=== PATIENT | female | born 1950 | race Caucasian/White ===

== ENCOUNTER 2017-01-15 14:49 | Inpatient (IN) | payer BC ==
[~2017-01-15] VITALS: Ht 157.5 cm; Wt 65.3 kg
--- NOTE | ~2017-01-15 | O ---
[facility] [place] [address] OPERATIVE REPORT Name: LON OCONNOR Room #: 312-P [facility] IN M.R.#: [id number] Admission: 01/15/17 Attend Phys: Azalea Connor MD Discharge: Date of : 54 Report #: [id number] THIS REPORT FOR: //name// CC: Azalea Connor DATE OF SERVICE: 01/20/2017 PREOPERATIVE DIAGNOSES: 1. Acute sigmoid diverticulitis with microperforation, status post percutaneous drainage. 2. New undrained intra-abdominal abscess. POSTOPERATIVE DIAGNOSES: 1. Acute sigmoid diverticulitis with microperforation, status post percutaneous drainage. 2. Significant intra-abdominal and pelvic adhesions with an entrapped loop of small bowel in the posterior cul-de-sac. PROCEDURE PERFORMED: Laparoscopic lysis of adhesions. SURGEON: Juanita Huynh M.D. EYELET MACHINE OPERATOR: DANNA Lord. ANESTHESIA: General endotracheal anesthesia. ESTIMATED BLOOD LOSS: Minimal (less than 5 mL). COMPLICATIONS: None appreciated. SPECIMENS: None. INDICATIONS: The patient is a 66-year-old female who was admitted a few days ago with a 5-day history of acute sigmoid diverticulitis with a pelvic abscess. The patient underwent percutaneous drainage by interventional radiology and was improving slightly until repeat CT scan yesterday evening showed evidence of complete evacuation of her pelvic abscess; however, there was evidence of a large mid abdominal to upper pelvic abscess with numerous loops of small bowel contained around it that was undrained and not amenable to percutaneous drainage as it appeared to communicate with the sigmoid colon. After a thorough review of the CT scan images with Dr. Vasquez, this did appear to be an abscess and as such, indication was for proceeding to the operating room for laparoscopic drainage of this abscess. Intraoperative findings of no evidence whatsoever of an abscess were identified, however, there was one loop of distal small bowel intimately plastered to the sacral promontory in the posterior cul-de-sac that was spiraling and twisting thereby being a [facility] [address] [place] [address] OPERATIVE REPORT Name: LON OCONNOR Room #: 312-P [facility] IN [facility].#: [id number] Admission: 01/15/17 Attend Phys: Azalea Connor MD Discharge: Date of : 54 Report #: [id number] relative closed loop obstruction, likely representing the CT scan findings of what appeared to be an abscess in the pelvis. Indication therefore was for lysis of adhesions to release this loop of small bowel into the upper abdomen. DESCRIPTION OF PROCEDURE: After explaining the risks, benefits and alternatives of the procedure with the patient in detail in the preoperative holding area and obtaining written consent, the patient was brought to the operating room and placed supine on the operating room table. After conducting a thorough timeout procedure verifying correct patient and procedure, the patient was given general endotracheal anesthesia. Once adequate anesthesia was obtained, SCDs were hooked up to pneumatic compression device and she was already on an inpatient regimen of IV antibiotic therapy, which is all in line with the SCIP protocol. The patient's abdomen was prepped and draped in standard surgical sterile fashion. 5 mL of 0.5% Marcaine with epinephrine were used to anesthetize the skin in the right upper quadrant and midclavicular line in a subcostal location. A #15 bladed scalpel was used to create a small skin bianka at this location. A 5-mm Visiport was placed over 0 degree 5 mm laparoscope and was introduced through this incision site. Once intraabdominal placement was verified visually, the obturator for the trocar and laparoscope were both removed and the abdomen was insufflated to 15 mmHg using carbon dioxide gas. The laparoscope was changed to a 5-mm 30-degree laparoscope and was reintroduced through this trocar. The entire abdomen was evaluated to ensure no injury upon entry. I now proceeded to place two additional 5 mm trocars, one in the right flank and one in the subxiphoid location. Both were placed under direct vision after anesthetizing the skin at each location with 5 mL of 0.5% Marcaine with epinephrine and I had created small skin nicks using #15 bladed scalpel. The patient was now placed in Trendelenburg position with the left side gently elevated, and I proceeded to evaluate the intra-abdominal domain. There were marked adhesions of omentum plastered to the pelvis. These were taken down with blunt dissection with ease. The descending colon was identified, was healthy and uninflamed. However, at the sigmoid colon area, it was quite firm, indurated and there was omentum plastered to it likely sealing the perforated spot and as such, I did not manipulate this to unroof it. We saw no evidence of purulent fluid throughout the abdominal domain. Further inspection in the pelvis showed evidence of marked adhesions to the posterior cul-de-sac with a loop of distal ileum plastered posterior to the uterus and anterior to the sacral promontory. Careful dissection was undertaken to free this loop of bowel, which was spiraling downward and had a relative closed loop obstruction appearance to it. Once I had freed this bowel from its inflammatory adhesions, I was able to sweep it into the mid abdominal region for full investigation and we saw no evidence of serosal injury or enterotomy whatsoever. We investigated on several occasions to ensure no damage and we again saw no evidence of pathology. Investigation of the pelvis now showed healthy rectum with again no evidence of an abscess whatsoever. I now copiously irrigated the abdomen with 2 liters of normal saline, which ran clear. I then elected to place a surgical drain in the posterior cul-de-sac, which was a 19-[place] round [facility] [address] [place] [address] OPERATIVE REPORT Name: LON OCONNOR Room #: 312-P [facility] IN [facility]#: [id number] Admission: 01/15/17 Attend Phys: Azalea Connor MD Discharge: Date of : 54 Report #: [id number] drain. This was brought out through the right lateral flank trocar site. It was anchored to the skin using 2-0 nylon in standard fashion. This was again placed in the posterior cul-de-sac under direct vision. As we saw no further evidence of pathology, all ports removed under direct vision. The abdomen was fully desufflated. 4-0 Monocryl was used in a standard subcuticular fashion for all skin incisions and Dermabond glue was applied to all skin wounds. At the end of the procedure, all instrument, needle and sponge counts were correct. The patient tolerated the procedure without incident, was awakened in the operating room, transitioned to the recovery room in stable condition with no apparent complications. <ELECTRONICALLY SIGNED> By: Juanita Huynh MD, FACS 01/21/17 0908 1529 1609 Juanita Huynh MD, ALBER /nt
--- NOTE | ~2017-01-15 | HC ---
[facility] [place] [address] CONSULTATION Name: ANASTASIALON Luis Room #: 312-P [facility] IN M.R.#: [id number] Admission: 01/15/17 Attend Phys: Azalea Connor MD Discharge: Date of : 54 Report #: [id number] THIS REPORT FOR: //name// CC: Azalea Connor TYPE OF REPORT: Infectious diseases consultation. REASON FOR CONSULTATION: I was asked to evaluate concerning pelvic abscess. HISTORY OF PRESENT ILLNESS: The patient was a 66-year old who has had intermittent abdominal discomfort for last several months. Last week, she had persisting abdominal pain associated with fever. She did have some urinary complaints with pelvic discomfort with micturition. No dysuria per se. Initially, treated with nitrofurantoin but did not improve. Subsequently, was hospitalized where CT scan showed pelvic abscess and suspected diverticular perforation. Abscess was drained on the . Cultures are pending. She has been treated with Zosyn and metronidazole. Her fever has resolved. Still has some abdominal discomfort. She has been trying to eat but has had resulting nausea. Very small amount of stool production. Has been passing gas. Still has pelvic pain with micturition. She has passed no air in her urine. ALLERGIES: To SULFA and HYDROCODONE. MEDICATIONS: As noted on her MAR, now including Zosyn and metronidazole. PAST MEDICAL HISTORY: Cholangitis colitis, scoliosis, hypertension, depression and rosacea. FAMILY HISTORY: Noncontributory. SOCIAL HISTORY: Smokes cigarettes, minimal alcohol intake. REVIEW OF SYSTEMS: No cough or sputum. No rashes or arthritis. Now has a drain in the right buttock region, which causes some discomfort. PHYSICAL EXAMINATION: VITAL SIGNS: Afebrile and hemodynamically stable. GENERAL: She was alert and cooperative and pleasant and able to sit up in bed. HEENT: Unremarkable. Right upper extremity PICC was unremarkable. CHEST: Clear. HEART: Regular, without murmur. ABDOMEN: Mildly distended. She was tender in the epigastric region, mostly towards the right. Upon palpation, the patient began to be nauseated and began vomiting. There was significant fullness in the mid to right abdomen. LABORATORY STUDIES: Culture from the abscess cavity, no organisms seen, no PMN seen and no growth so far. Sodium 139, potassium 3.7, bicarbonate [address] [address] CONSULTATION Name: LON OCONNOR Luis Room #: [address] [place] [address] [place] [facility].#: [id number] Admission: 01/15/17 Attend Phys: Azalea Connor MD Discharge: Date of : 54 Report #: [id number] creatinine 0.9. Hemoglobin 11.9; white count was 10.3 and platelet count 445,000. Differential unremarkable. Blood culture is negative. Liver function test normal. IMPRESSION AND PLAN: A pelvic abscess, suspecting diverticulitis with perforation. Despite having a drain in place, she is still very distended and has significant tenderness. I will recommend continuing her IV antibiotic therapy. Agree with repeating her CAT scan to ensure adequate drainage. I am a bit concerned that the Gram stain showed no organisms and no WBCs with cultures being negative. This should be a polymicrobial infection. We will determine further treatment following repeat CAT scan. We will currently plan on arranging home IV therapy. <ELECTRONICALLY SIGNED> By: Roc Schafer MD 01/21/17 1025 1819 0042 Roc Schafer MD /nt
--- NOTE | ~2017-01-15 | HC ---
[facility] [place] [address] CONSULTATION Name: LON OCONNOR Luis Room #: 312-P [facility] IN .R.#: [id number] Admission: 01/15/17 Attend Phys: Azalea Connor MD Discharge: Date of : 54 Report #: [id number] THIS REPORT FOR: //name// CC: Azalea Connor DATE OF SERVICE: 01/15/2017 DATE OF SERVICE: 01/15/2017. REFERRING PROVIDER: Azalea Connor M.D. REASON FOR CONSULTATION: Abdominal pain. HISTORY OF PRESENT ILLNESS: The patient is a 66-year-old female who presented 4 days ago with complaints of suprapubic pain and dysuria. The patient was evaluated with a urinalysis which was suspicious for urinary tract infection and she was started on nitrofurantoin at that time. The patient states over the next couple of days, her fever resolved, but her pain worsened and her urine culture returned with no growth, so she was brought back to the office with worsened abdominal pain on exam. The working diagnosis was changed diverticulitis and she received a CT scan this morning after declining hospitalization on last evening. A CT scan today showed sigmoid diverticulitis with two pelvic abscesses, but no free air, consistent with severe diverticulitis and microperforation with abscess formation. The patient was therefore directly admitted and I have been asked to evaluate. PAST MEDICAL HISTORY: Hypertension, depression, rosacea, scoliosis and prior episodes of colitis. HOME MEDICATIONS: Mirabegron and Lexapro. ALLERGIES: HYDROCODONE AND SULFA. FAMILY HISTORY: Reviewed and noncontributory. SOCIAL HISTORY: The patient smokes half a pack of cigarettes daily and has done so for several years. She also drinks one glass of wine weekly and smokes marijuana daily. REVIEW OF SYSTEMS: GENERAL: The patient denies nocturnal fevers or chills. HEENT: No change in vision, change in hearing. NECK: No swelling or difficulty swallowing. HEART: No chest pain or palpitations. LUNGS: No cough or shortness of breath. ABDOMEN: Abdominal pain with nausea. [facility] [address] [place] [address] CONSULTATION Name: LON OCONNOR Luis Room #: 312-P [facility] IN M.R.#: [id number] Admission: 01/15/17 Attend Phys: Azalea Connor MD Discharge: Date of : 54 Report #: [id number] GENITOURINARY: No dysuria or hematuria. ENDOCRINE: No polyuria, polydipsia. HEMATOLOGIC: No history of bleeding or easy bruising. EXTREMITIES: No history weakness or limited range of motion. NEUROLOGIC: No history of syncope or near syncopal episodes. SKIN AND INTEGUMENT: No history of abnormal lesions or moles. PSYCHIATRIC: Positive history of anxiety, but no depression. PHYSICAL EXAMINATION: VITAL SIGNS: Temperature 99.0, pulse 61, respirations 16, blood pressure 102/62. She stands 5 feet 2 inches tall and weighs 144 pounds. GENERAL: Alert and oriented, in no acute distress. HEENT: Normocephalic, atraumatic. Pupils equal, round, reactive to light. NECK: Supple, without lymphadenopathy. Trachea midline. HEART: Regular rate and rhythm. LUNGS: Clear to auscultation bilaterally. ABDOMEN: Soft, nondistended. She is tender to palpation in the left lower quadrant and suprapubic regions, but does not have any guarding, rebound or peritoneal signs or symptoms. GENITOURINARY: Normal external female genitalia. EXTREMITIES: No clubbing, cyanosis or edema. NEUROLOGIC: Cranial nerves 2-12 are grossly intact. PSYCHIATRIC: Normal mood and affect. SKIN: No abnormal lesions or moles. LABORATORY AND X-RAY DATA: CBC shows white blood cell count of 14.4 thousand, hemoglobin 14.3, platelets 418,000. Creatinine 1.0. Liver function enzymes are normal. Albumin is 3.2. INR 1.0 with PTT of 29.4. CT scan report was reviewed with Dr. Connor showing findings as per history of present illness. ASSESSMENT AND PLAN: A 66-year-old female with what appears to be acute sigmoid diverticulitis with microperforation and multiple pelvic abscess formation. Per her outside report, these appear amenable to percutaneous drainage and as such, I will have Interventional Radiology intervene for drain placement at this time. We will initiate antibiotics in the form of Zosyn and Flagyl and keep her n.p.o. with IV fluid rehydration. The patient will likely improve markedly over the next few days with appropriate drainage and antibiotic therapy and hopefully we can avoid an emergent operation, which would entail Elaine's procedure with end colostomy. All the above was discussed with the patient in detail and she agrees to proceed as outlined. [address] [address] CONSULTATION Name: LON OCONNOR Room #: 312-P [facility] IN M.R.#: [id number] Admission: 01/15/17 Attend Phys: Azalea Connor MD Discharge: Date of : 54 Report #: [id number] I sincerely appreciate this consult. I will follow closely and leave any further recommendations in the patient's chart as appropriate. <ELECTRONICALLY SIGNED> By: Juanita Huynh MD, FACS 01/17/17 1120 1237 1433 Juanita Huynh MD, FACS /nt
[2017-01-15 15:00] VITALS: BP 115/69
[2017-01-15 17:34] LABS: HEMATOCRIT 40.4 % (37.0-47.0); HEMOGLOBIN 14.3 gm/dL (12.0-15.0); MCHC 35.5 g/dL (28.0-37.0); MCV 98.6 fL (80.0-100.0); PLATELET COUNT 418 thou/uL (150-400); RBC 4.09 mil/uL (4.20-5.00); RDW 12.3 % (10.5-14.5); WBC 14.4 thou/uL (4.0-11.0)
[2017-01-15 17:35] LABS: MANUAL DIFF YES
[2017-01-15 17:50] LABS: APTT 29.4 Seconds (24.5-32.8); PROTIME 9.4 Seconds (9.3-11.4)
[2017-01-15 17:52] LABS: ALBUMIN 3.2 g/dL (3.4-5.0); CALCIUM 9.6 mg/dL (8.5-10.1); TOTAL BILIRUBIN 0.5 mg/dL (<0.1-1.0); TOTAL PROTEIN 7.6 g/dL (6.4-8.2)
[2017-01-15 17:54] LABS: POTASSIUM 2.7 mmol/L (3.5-5.1)
[2017-01-15 17:56] LABS: ABSOLUTE NEUTROPHILS 12.8 thou/uL (1.4-8.2); ANISOCYTOSIS 1+; ATYPICAL LYMPHS 1 %; TOTAL CELL COUNT 100
[2017-01-15] MEDS ORDERED: MYRBETRIQ25 MG PO (17:59)
[2017-01-15] MEDS ORDERED: LEXAPRO 10 MG T10 MG PO (18:01)
[2017-01-15 20:00] VITALS: BP 102/62
[2017-01-15 23:30] VITALS: BP 99/60
[2017-01-16] VITALS (9 sets, daily range): BP systolic 94–115; BP diastolic 53–68
[2017-01-16 07:45] LABS: ABSOLUTE NEUTROPHILS 9.4 thou/uL (1.4-8.2); BASOPHILS 0.6 % (0.0-2.0); HEMATOCRIT 36.7 % (37.0-47.0); HEMOGLOBIN 12.7 gm/dL (12.0-15.0); LYMPHOCYTES 8.4 % (24.0-44.0); MCH 34.3 pg (26.0-34.0); MCHC 34.6 g/dL (28.0-37.0); MCV 99.1 fL (80.0-100.0); MONOCYTES 9.3 % (1.0-8.0); PLATELET COUNT 387 thou/uL (150-400); POLYS 80.7 % (36.0-66.0); RDW 12.7 % (10.5-14.5); WBC 11.7 thou/uL (4.0-11.0)
[2017-01-16 07:46] LABS: MANUAL DIFF NO
[2017-01-16 07:51] LABS: POTASSIUM 3.4 mmol/L (3.5-5.1)
[2017-01-17 04:07] VITALS: BP 95/60
[2017-01-17 06:28] LABS: POTASSIUM 4.1 mmol/L (3.5-5.1)
[2017-01-17 08:24] VITALS: BP 96/60
[2017-01-17 15:23] VITALS: BP 90/57
[2017-01-17 19:57] VITALS: BP 100/60
[2017-01-18 03:46] VITALS: BP 107/65
[2017-01-18 06:18] LABS: ABSOLUTE NEUTROPHILS 8.3 thou/uL (1.4-8.2); BASOPHILS 0.7 % (0.0-2.0); EOSINOPHILS 1.3 % (0.0-3.0); HEMATOCRIT 35.2 % (37.0-47.0); HEMOGLOBIN 11.9 gm/dL (12.0-15.0); LYMPHOCYTES 10.6 % (24.0-44.0); MCHC 33.7 g/dL (28.0-37.0); MONOCYTES 7.5 % (1.0-8.0); PLATELET COUNT 445 thou/uL (150-400); POLYS 79.9 % (36.0-66.0); RBC 3.49 mil/uL (4.20-5.00); WBC 10.3 thou/uL (4.0-11.0)
[2017-01-18 06:19] LABS: MANUAL DIFF NO
[2017-01-18 06:36] LABS: CALCIUM 8.6 mg/dL (8.5-10.1); CREATININE 0.9 mg/dL (0.6-1.0); POTASSIUM 3.7 mmol/L (3.5-5.1)
[2017-01-18 08:04] VITALS: BP 110/67
[2017-01-18 15:16] VITALS: BP 112/69
[2017-01-18 19:39] VITALS: BP 102/54
[2017-01-19 03:50] VITALS: BP 124/67
[2017-01-19 07:28] LABS: HEMATOCRIT 32.9 % (37.0-47.0); HEMOGLOBIN 11.3 gm/dL (12.0-15.0); MCH 34.4 pg (26.0-34.0); MCHC 34.3 g/dL (28.0-37.0); MCV 100.3 fL (80.0-100.0); RBC 3.28 mil/uL (4.20-5.00); RDW 12.7 % (10.5-14.5); WBC 11.7 thou/uL (4.0-11.0)
[2017-01-19 07:39] LABS: CALCIUM 8.7 mg/dL (8.5-10.1); CREATININE 0.8 mg/dL (0.6-1.0); POTASSIUM 3.7 mmol/L (3.5-5.1)
[2017-01-19 07:52] VITALS: BP 130/91
[2017-01-19 20:40] VITALS: BP 116/74
[2017-01-20] VITALS (10 sets, daily range): BP systolic 101–138; BP diastolic 60–81
[2017-01-20 06:48] LABS: HEMATOCRIT 33.2 % (37.0-47.0); HEMOGLOBIN 11.6 gm/dL (12.0-15.0); MCH 34.5 pg (26.0-34.0); MCHC 34.8 g/dL (28.0-37.0); MCV 99.1 fL (80.0-100.0); RBC 3.35 mil/uL (4.20-5.00); RDW 12.7 % (10.5-14.5); WBC 10.4 thou/uL (4.0-11.0)
[2017-01-20 07:03] LABS: ALBUMIN 2.3 g/dL (3.4-5.0); CALCIUM 8.4 mg/dL (8.5-10.1); CREATININE 0.8 mg/dL (0.6-1.0); MAGNESIUM 1.9 mg/dL (1.8-2.4); POTASSIUM 3.7 mmol/L (3.5-5.1); TOTAL BILIRUBIN 0.2 mg/dL (<0.1-1.0); TOTAL PROTEIN 5.8 g/dL (6.4-8.2)
[2017-01-21 05:10] VITALS: BP 112/70
[2017-01-21 05:28] LABS: HEMATOCRIT 34.5 % (37.0-47.0); HEMOGLOBIN 11.9 gm/dL (12.0-15.0); MCH 34.2 pg (26.0-34.0); MCHC 34.4 g/dL (28.0-37.0); MCV 99.4 fL (80.0-100.0); RBC 3.47 mil/uL (4.20-5.00); RDW 12.8 % (10.5-14.5); WBC 14.7 thou/uL (4.0-11.0)
[2017-01-21 05:42] LABS: CALCIUM 8.9 mg/dL (8.5-10.1); CREATININE 0.9 mg/dL (0.6-1.0); MAGNESIUM 2.1 mg/dL (1.8-2.4); PHOSPHORUS 3.6 mg/dL (2.5-4.9); POTASSIUM 4.2 mmol/L (3.5-5.1)
[2017-01-21 07:20] VITALS: BP 116/64
[2017-01-21 15:30] VITALS: BP 117/53
[2017-01-21 19:53] VITALS: BP 106/54
[2017-01-22 03:38] VITALS: BP 108/58
[2017-01-22 06:53] LABS: HEMOGLOBIN 10.9 gm/dL (12.0-15.0); MCHC 33.9 g/dL (28.0-37.0); MCV 100.1 fL (80.0-100.0); RBC 3.2 mil/uL (4.20-5.00); RDW 12.7 % (10.5-14.5); WBC 11.1 thou/uL (4.0-11.0)
[2017-01-22 06:59] LABS: CALCIUM 8.6 mg/dL (8.5-10.1); CREATININE 0.8 mg/dL (0.6-1.0); PHOSPHORUS 2.8 mg/dL (2.5-4.9); POTASSIUM 3.7 mmol/L (3.5-5.1)
[2017-01-22 08:00] VITALS: BP 132/63
[2017-01-22 16:00] VITALS: BP 126/72
[2017-01-22 20:45] VITALS: BP 119/70
[2017-01-23 05:35] VITALS: BP 129/60
[2017-01-23 07:43] VITALS: BP 141/79
[2017-01-23 16:20] VITALS: BP 118/67
[2017-01-23 19:51] VITALS: BP 88/53
[2017-01-24 04:12] VITALS: BP 82/41
[2017-01-24 08:00] VITALS: BP 88/51
[2017-01-24 16:00] VITALS: BP 107/53
[2017-01-24 19:42] VITALS: BP 90/48
[2017-01-25 04:45] VITALS: BP 100/57
[2017-01-25 05:16] LABS: HEMATOCRIT 35.3 % (37.0-47.0); HEMOGLOBIN 11.8 gm/dL (12.0-15.0); MCH 33.6 pg (26.0-34.0); MCHC 33.4 g/dL (28.0-37.0); MCV 100.5 fL (80.0-100.0); PLATELET COUNT 567 thou/uL (150-400); RBC 3.51 mil/uL (4.20-5.00); RDW 12.9 % (10.5-14.5); WBC 18.6 thou/uL (4.0-11.0)
[2017-01-25 05:17] LABS: MANUAL DIFF YES
[2017-01-25 05:41] LABS: CALCIUM 8.6 mg/dL (8.5-10.1); POTASSIUM 3.9 mmol/L (3.5-5.1)
[2017-01-25 06:24] LABS: ABSOLUTE NEUTROPHILS 16.9 thou/uL (1.4-8.2); TOTAL CELL COUNT 100
[2017-01-25 06:25] LABS: ANISOCYTOSIS SLIGHT; MACROCYTES SLIGHT
[2017-01-25 09:07] VITALS: BP 100/60
[2017-01-25 17:28] VITALS: BP 112/52
[2017-01-25 20:50] VITALS: BP 110/60
[2017-01-25 23:30] VITALS: BP 116/63
[2017-01-26 05:30] VITALS: BP 116/65
[2017-01-26 07:25] VITALS: BP 109/65
[2017-01-26 09:23] LABS: HEMATOCRIT 30.6 % (37.0-47.0); HEMOGLOBIN 10.6 gm/dL (12.0-15.0); MANUAL DIFF YES; MCH 34.4 pg (26.0-34.0); MCHC 34.8 g/dL (28.0-37.0); MCV 98.8 fL (80.0-100.0); PLATELET COUNT 512 thou/uL (150-400); RBC 3.09 mil/uL (4.20-5.00); RDW 12.8 % (10.5-14.5); WBC 10.4 thou/uL (4.0-11.0)
[2017-01-26 09:39] LABS: CALCIUM 8.5 mg/dL (8.5-10.1); CREATININE 0.9 mg/dL (0.6-1.0); POTASSIUM 3.7 mmol/L (3.5-5.1)
[2017-01-26 10:28] LABS: ABSOLUTE NEUTROPHILS 9.2 thou/uL (1.4-8.2); PLATELET ESTIMATE INCREASED; TOTAL CELL COUNT 100
[2017-01-26 15:40] VITALS: BP 127/61
[2017-01-26 20:00] VITALS: BP 122/58
[2017-01-27 04:00] VITALS: BP 131/70
[2017-01-27 06:44] LABS: HEMATOCRIT 28.7 % (37.0-47.0); HEMOGLOBIN 10.2 gm/dL (12.0-15.0); MCH 35.4 pg (26.0-34.0); MCHC 35.5 g/dL (28.0-37.0); MCV 99.6 fL (80.0-100.0); RBC 2.88 mil/uL (4.20-5.00); RDW 12.7 % (10.5-14.5)
[2017-01-27 06:58] LABS: CALCIUM 8.7 mg/dL (8.5-10.1); CREATININE 0.9 mg/dL (0.6-1.0); POTASSIUM 3.4 mmol/L (3.5-5.1)
[2017-01-27 08:00] VITALS: BP 109/76
[2017-01-27 16:00] VITALS: BP 120/65
[2017-01-27 19:11] VITALS: BP 130/65
[2017-01-28 04:09] VITALS: BP 121/57
[2017-01-28 06:01] LABS: ALBUMIN 2.1 g/dL (3.4-5.0); CALCIUM 8.7 mg/dL (8.5-10.1); CREATININE 0.7 mg/dL (0.6-1.0); PHOSPHORUS 3.5 mg/dL (2.5-4.9); POTASSIUM 3.4 mmol/L (3.5-5.1); TOTAL BILIRUBIN 0.4 mg/dL (<0.1-1.0); TOTAL PROTEIN 5.9 g/dL (6.4-8.2)
[2017-01-28 15:48] VITALS: BP 119/69
[2017-01-28 20:58] VITALS: BP 124/70
[2017-01-29 04:03] VITALS: BP 114/99
[2017-01-29 06:36] LABS: CREATININE 0.8 mg/dL (0.6-1.0); MAGNESIUM 2.1 mg/dL (1.8-2.4); PHOSPHORUS 3.4 mg/dL (2.5-4.9); POTASSIUM 3.8 mmol/L (3.5-5.1)
[2017-01-29 08:00] VITALS: BP 162/75
[2017-01-29 16:00] VITALS: BP 131/83
[2017-01-29 19:40] VITALS: BP 123/70
[2017-01-30 04:00] VITALS: BP 125/67
[2017-01-30 07:22] LABS: CREATININE 0.8 mg/dL (0.6-1.0); MAGNESIUM 2.1 mg/dL (1.8-2.4); PHOSPHORUS 3.7 mg/dL (2.5-4.9); POTASSIUM 3.8 mmol/L (3.5-5.1)
[2017-01-30 08:18] VITALS: BP 113/64
[2017-01-30 15:57] VITALS: BP 110/66
[2017-01-30 19:20] VITALS: BP 115/61
[2017-01-31 04:30] VITALS: BP 141/69
[2017-01-31 08:46] VITALS: BP 115/65
[2017-01-31 16:09] VITALS: BP 105/60
[2017-01-31 16:22] VITALS: BP 105/60
== END 2017-01-31 18:11 | disposition home health service (06) | DRG 336 ==
LOC: 3N 14:49
PROVIDERS: Family Medicine; Surgery
PROC: 0W9J3ZX Drainage of Pelvic Cavity, Percutaneous Approach, Diagnostic (ICD-10-PCS; principal; 2017-01-16)
PROC: 0DNS4ZZ (ICD-10-PCS; 2017-01-20)
DX: K57.20 Diverticulitis of large intestine with perforation and abscess without bleeding (principal); K56.5 Intestinal adhesions [bands] with obstruction (postinfection); I10 Essential (primary) hypertension; F32.9 Major depressive disorder, single episode, unspecified; M41.9 Scoliosis, unspecified; F17.210 Nicotine dependence, cigarettes, uncomplicated; E87.6 Hypokalemia; K59.00 Constipation, unspecified; Z88.2 Allergy status to sulfonamides; Z88.8 Allergy status to other drugs, medicaments and biological substances; Z82.49 Family history of ischemic heart disease and other diseases of the circulatory system; Z82.0 Family history of epilepsy and other diseases of the nervous system
CPT/HCPCS: 10795; 27000; 50010; 50101; 50249; 50386; 50455; 50555; 50962; 51489; 52265; 53307; 54118; 56526; 57092; 62110; 62900; 70005

== ENCOUNTER 2017-02-22 10:39 | Inpatient (IN) | payer BC ==
[~2017-02-22] VITALS: Ht 160 cm; Wt 64.7 kg
--- NOTE | ~2017-02-22 | HC ---
[facility] [place] [address] CONSULTATION Name: ANASTASIA,LON L Room #: 418-P [facility] IN ..#: [id number] Admission: 02/22/17 Attend Phys: Harish Vergara DO Discharge: Date of : 54 Report #: [id number] THIS REPORT FOR: //name// CC: Harish Connor INFECTIOUS DISEASE CONSULTATION REASON FOR CONSULTATION: I was asked to evaluate concerning rash and urticaria. HISTORY OF PRESENT ILLNESS: The patient was a 66-year-old diagnosed with diverticulitis and diverticular abscess, who was hospitalized on 01/15/2017. She was treated with IV antibiotic therapy including Zosyn and was discharged on 01/31/2017. She later developed a rash which she felt was more likely related to her narcotic that she was on. She stated that she had previously had rash when she took narcotics. She was placed on antihistamines followed by prednisone. Although she went off the narcotic, she remained on Zosyn. By mid week last week, about 5 days ago, elected to discontinue the antibiotic because she was still having rash. She remained on antihistamines and prednisone until the weekend, but called this morning noting that she was starting to have facial swelling and lesions in her mouth. Because of this, she was admitted to the Emergency Room. No fever, chills or sweats. No nausea, vomiting, diarrhea, dysuria or frequency. She has ADELITA drain in her lower abdomen with minimal output. Her last CT scan showed resolution of the fluid collection. There was no evidence of fistula. ALLERGIES: SULFA, HYDROCODONE, OXYCODONE AND ZOSYN. MEDICATIONS: As noted on her JUL. She was given methylprednisolone in the Emergency Room and kept on antihistamines. PAST MEDICAL HISTORY: Otherwise unchanged from her previous consultation. FAMILY HISTORY: Otherwise unchanged from her previous consultation. SOCIAL HISTORY: Otherwise unchanged from her previous consultation. REVIEW OF SYSTEMS: Noted above. PHYSICAL EXAMINATION: VITAL SIGNS: Afebrile, hemodynamically stable. GENERAL: She is alert and cooperative. SKIN: She had a diffuse body rash, maculopapular, with some petechiae. Rash involved her total body, including palms and soles. HEENT: She had facial swelling. Oral mucosa was unremarkable. HEENT, otherwise, unremarkable. LUNGS: Clear. [address] [address] CONSULTATION Name: LON OCONNOR Luis Room #: 418-P [facility] IN M.R.#: [id number] Admission: 02/22/17 Attend Phys: Harish Vergara DO Discharge: Date of : 54 Report #: [id number] HEART: Regular. ABDOMEN: Soft and nontender. Drain has been removed by General Surgery Service. LABORATORY STUDIES: Sedimentation rate 5. Hemoglobin 13.8, white count 24.3 with 26% eosinophils and platelet count 506,000. CRP 2.5. Sodium 135, potassium 3.3, bicarbonate 24 and creatinine 1. IMPRESSION AND PLAN: Diffuse rash with urticaria, not responding to oral corticosteroids and antihistamines. I am suspecting PENICILLIN ALLERGY. Recommend observation off antibiotics now. Agree with IV corticosteroids and antihistamines. We will follow her eosinophil count and abdominal complaints. We will go short courses we can with her corticosteroids due to her intra-abdominal infection. Hopefully, we have been on antibiotics long enough for this to remain quiescent. <ELECTRONICALLY SIGNED> By: Roc Schafer MD 02/23/17 1606 [id number] 2533 Roc Schafer MD /nt
[~2017-02-22 10:39] MED LIST: LEXAPRO 10 MG T10 MG PO; MYRBETRIQ25 MG PO
[2017-02-22 10:40] VITALS: BP 121/77
[2017-02-22 12:31] LABS: HEMATOCRIT 41.8 % (37.0-47.0); HEMOGLOBIN 13.8 gm/dL (12.0-15.0); MCH 31.7 pg (26.0-34.0); MCHC 33.1 g/dL (28.0-37.0); MCV 95.7 fL (80.0-100.0); PLATELET COUNT 506 thou/uL (150-400); RBC 4.37 mil/uL (4.20-5.00); RDW 12.9 % (10.5-14.5); WBC 24.3 thou/uL (4.0-11.0)
[2017-02-22 12:33] LABS: MANUAL DIFF YES
[2017-02-22 12:35] LABS: CALCIUM 9.1 mg/dL (8.5-10.1); POTASSIUM 3.3 mmol/L (3.5-5.1)
[2017-02-22 12:59] LABS: ABSOLUTE NEUTROPHILS 11.4 thou/uL (1.4-8.2); ANISOCYTOSIS SLIGHT; METAMYELOCYTES 1 %; TOTAL CELL COUNT 100
[2017-02-22 13:43] VITALS: BP 108/61
[2017-02-22 14:11] VITALS: BP 101/62
[2017-02-22 14:35] VITALS: BP 111/62
[2017-02-22 20:00] VITALS: BP 112/55
[2017-02-23 04:00] VITALS: BP 123/64
[2017-02-23 06:25] LABS: HEMATOCRIT 35.2 % (37.0-47.0); MCH 31.9 pg (26.0-34.0); MCHC 33.4 g/dL (28.0-37.0); MCV 95.5 fL (80.0-100.0); PLATELET COUNT 437 thou/uL (150-400); RBC 3.69 mil/uL (4.20-5.00); RDW 12.9 % (10.5-14.5); WBC 19.1 thou/uL (4.0-11.0)
[2017-02-23 06:32] LABS: MANUAL DIFF YES
[2017-02-23 06:33] LABS: CALCIUM 8.8 mg/dL (8.5-10.1); CREATININE 1.1 mg/dL (0.6-1.0); HEMOGLOBIN 11.8 gm/dL (12.0-15.0); MAGNESIUM 1.9 mg/dL (1.8-2.4); POTASSIUM 3.9 mmol/L (3.5-5.1)
[2017-02-23 07:45] VITALS: BP 133/73
[2017-02-23 08:06] LABS: ABSOLUTE NEUTROPHILS 13.4 thou/uL (1.4-8.2); METAMYELOCYTES 2 %; TOTAL CELL COUNT 100
[2017-02-23 15:25] VITALS: BP 127/68
[2017-02-23 20:00] VITALS: BP 129/82
[2017-02-24 04:00] VITALS: BP 131/74
[2017-02-24 06:15] LABS: HEMATOCRIT 32.8 % (37.0-47.0); MCHC 33.7 g/dL (28.0-37.0); MCV 95.1 fL (80.0-100.0); PLATELET COUNT 408 thou/uL (150-400); RBC 3.45 mil/uL (4.20-5.00); RDW 12.8 % (10.5-14.5); WBC 17.5 thou/uL (4.0-11.0)
[2017-02-24 06:19] LABS: MANUAL DIFF YES
[2017-02-24 06:22] LABS: CALCIUM 8.8 mg/dL (8.5-10.1); CREATININE 0.9 mg/dL (0.6-1.0); POTASSIUM 3.3 mmol/L (3.5-5.1)
[2017-02-24 07:39] VITALS: BP 135/70
[2017-02-24 08:45] LABS: ABSOLUTE NEUTROPHILS 13.1 thou/uL (1.4-8.2); ANISOCYTOSIS SLIGHT; TOTAL CELL COUNT 100
[2017-02-24 15:31] VITALS: BP 122/65
[2017-02-24 20:00] VITALS: BP 138/71
[2017-02-25 03:56] LABS: ABSOLUTE NEUTROPHILS 13.2 thou/uL (1.4-8.2); BASOPHILS 0.5 % (0.0-2.0); EOSINOPHILS 0.2 % (0.0-3.0); HEMATOCRIT 34.2 % (37.0-47.0); HEMOGLOBIN 11.4 gm/dL (12.0-15.0); LYMPHOCYTES 17.8 % (24.0-44.0); MCH 31.8 pg (26.0-34.0); MCHC 33.2 g/dL (28.0-37.0); MCV 95.7 fL (80.0-100.0); PLATELET COUNT 403 thou/uL (150-400); POLYS 76.5 % (36.0-66.0); RBC 3.57 mil/uL (4.20-5.00); RDW 12.9 % (10.5-14.5); WBC 17.3 thou/uL (4.0-11.0)
[2017-02-25 04:02] LABS: MANUAL DIFF NO
[2017-02-25 04:10] VITALS: BP 124/65
[2017-02-25 04:40] LABS: CALCIUM 8.9 mg/dL (8.5-10.1); CREATININE 0.9 mg/dL (0.6-1.0); POTASSIUM 3.3 mmol/L (3.5-5.1)
[2017-02-25 07:21] VITALS: BP 136/65
[2017-02-25] MEDS ORDERED: PREDNISONE 20 M20 MG PO (07:52)
[2017-02-25 08:05] VITALS: BP 136/65
[2017-02-25 09:49] VITALS: BP 136/65
== END 2017-02-25 09:53 | disposition home or self-care (01) | DRG 607 ==
LOC: ER 10:39 → 4E 13:25 → EROBS 13:25 → 4E 14:12 → ENTRNSPT 02-25 09:43 → EDTRNSPTSTS 02-25 09:45 → 4E 02-25 09:53
PROVIDERS: Emergency Medicine; Family Medicine; Nurse Practitioner
DX: L25.8 Unspecified contact dermatitis due to other agents (principal); E87.1 Hypo-osmolality and hyponatremia; K57.80 Diverticulitis of intestine, part unspecified, with perforation and abscess without bleeding; L50.9 Urticaria, unspecified; I10 Essential (primary) hypertension; F32.9 Major depressive disorder, single episode, unspecified; M41.9 Scoliosis, unspecified; Z88.6 Allergy status to analgesic agent; Z88.2 Allergy status to sulfonamides; F17.210 Nicotine dependence, cigarettes, uncomplicated; Z82.49 Family history of ischemic heart disease and other diseases of the circulatory system; Z82.0 Family history of epilepsy and other diseases of the nervous system; E87.6 Hypokalemia; E86.0 Dehydration; K52.9 Noninfective gastroenteritis and colitis, unspecified; T36.0X5A Adverse effect of penicillins, initial encounter; Y92.89 Other specified places as the place of occurrence of the external cause
CPT/HCPCS: 10084

== ENCOUNTER → 2017-02-26 | Outpatient (CLI) | payer BC ==
[~2017-02-26] MED LIST changes: +PREDNISONE 20 M20 MG PO
== END ==
LOC: CAT 15:47
DX: K57.20 Diverticulitis of large intestine with perforation and abscess without bleeding (principal)

== ENCOUNTER 2017-11-04 05:44 | Inpatient (IN) | payer OTHER, BC ==
[~2017-11-04] VITALS: Ht 160 cm; Wt 65.8 kg
--- NOTE | ~2017-11-04 | PATH ---
[facility] [place] [address] [place] [address] PATHOLOGY RPT PROCEDURE Name: LON OCONNOR Room #: 431-P [facility] IN M.R.#: [id number] Admission: 11/04/17 Date of : 54 Discharge: Report #: [id number] Path Case #: [id number] [facility] Accession Number: [id number] . 01 Material submitted: . OSTOMY TISSUE . 02 Diagnosis: Ostomy tissue, removal: - Inflamed squamous epithelium adjacent to inflamed large intestinal mucosa, consistent with colostomy tissue. (IUV:pit; 11/05/2017) QTP/11/05/2017 . 02 Electronically signed: . Dilma Ruano MD, Pathologist NPI- [id number] . 01 Gross description: . Received in formalin labeled "Lon Oconnor, ostomy tissue" and consists of a segment of gastrointestinal tissue measuring 5.0 cm in length by a 3.0 cm in diameter. One end is open while the opposite end consists of a 1.5 cm stoma. The mucosa at stomal site is hyperemic with no lesions identified. The stoma surrounded by a rim of hughes skin ranging in width from 0.2 cm-0.5 cm. The segment is opened longitudinally. No mucosal lesions are identified. Apparel Designer sections are submitted as A1. (CARLOS; 11/04/2017) JBR/JBR . 02 Pathologist provided ICD-10: K94.09 . 02 CPT . 321985 Performed at: [address], [place] [id number] MD Rc Vasquez MD Phone: [phone] Performed at: [address] [id number] MD Dilma Ruano MD Phone: [phone]
--- NOTE | ~2017-11-04 | HC ---
[facility] [place] [address] CONSULTATION Name: LON OCONNOR Luis Room #: 227-P [facility] IN .R.#: [id number] Admission: 11/04/17 Attend Phys: Juanita Huynh MD, Discharge: Date of : 54 Report #: [id number] THIS REPORT FOR: //name// CC: Juanita Connor REASON FOR CONSULTATION: Medication management. SUBJECTIVE: The patient is postop day #3 colostomy takedown. She progressed to full liquid and then regular diet last night. She reports no increased pain with eating. She denies nausea. She reports flatus, but no BM. She reports incisional type pain with movements. OBJECTIVE: VITAL SIGNS: She is afebrile. Blood pressure 122/67, O2 sat 94% on room air, pulse 60s. NECK: Supple. CHEST: Clear. HEART: Regular. ABDOMEN: Soft, mildly tender, mostly incisional, left lower quadrant incision. Erythematous and warm. LABORATORY DATA: Creatinine 1.1. Hemoglobin 12.0. White count 6.3. ASSESSMENT AND PLAN: Postop day #3, colostomy takedown, doing fairly well, tolerating regular diet, passing flatus, but no bowel movement yet. Anticipate discharge per Surgery. By: 0718 1035 Saroj Veliz MD /nt
--- NOTE | ~2017-11-04 | O ---
[facility] [place] [address] OPERATIVE REPORT Name: ANASTASIALON L Room #: 431-P ADM IN M.R.#: [id number] Admission: 11/04/17 Attend Phys: Juanita Huynh MD, Discharge: Date of : 54 Report #: [id number] THIS REPORT FOR: //name// CC: Juanita Connor DATE OF SERVICE: 11/04/2017 PREOPERATIVE DIAGNOSES: 1. 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 2. Suspected intra-abdominal adhesions. 3. Essential hypertension. 4. Anxiety with depression. POSTOPERATIVE DIAGNOSES: 1. 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 2. Dense intra-abdominal adhesions. 3. Essential hypertension. 4. Anxiety with depression. 5. Incarcerated parastomal hernia. 6. Incarcerated incisional ventral hernia. PROCEDURES PERFORMED: 1. Laparoscopic reversal of a descending colostomy with stapled coloproctostomy. 2. Suture repair of an incarcerated parastomal hernia. 3. Laparoscopic mobilization of the splenic flexure. 4. Extensive laparoscopic lysis of adhesions lasting greater than 2 hours. 5. Laparoscopic primary suture repair of an incarcerated incisional ventral hernia. 6. Modifier 22 procedure for difficulty of procedure that required an extremely lengthy lysis of adhesions as well as mobilization of the splenic flexure to attain enough length on the colon for an appropriate tension-free anastomosis. Total operative time was greater than 3-1/2 hours as opposed to the usual 60-90 minute procedure. SURGEON: Juanita Huynh M.D. FUSION OPERATOR: River Galicia MD [employer] ARCHITECT: DANNA Ly ANESTHESIA: General endotracheal anesthesia. ESTIMATED BLOOD LOSS: Minimal (less than 20 mL). [address] [address] OPERATIVE REPORT Name: ANASTASIALON Luis Room #: 431-[facility] IN [facility].#: [id number] Admission: 11/04/17 Attend Phys: Juanita Huynh MD, Discharge: Date of : 54 Report #: [id number] COMPLICATIONS: None appreciated. SPECIMENS: Colostomy to pathology. INDICATIONS: The patient is a 67-year-old female who was seen approximately 7-8 months ago for smoldering sigmoid diverticulitis. The patient ultimately underwent an exploratory laparotomy with Elaine's procedure by my partner, Dr. John Morley, whereby he found marked intra-abdominal adhesions and required a lengthy lysis of adhesions at that time, coupled with 3 segmental small bowel resections and the Elaine's procedure for definitive management at that time. Since then, the patient has done quite well. She has been abstinent from tobacco use and has not utilized any steroids in the past 3 months and has undergone a colonoscopy showing only a few polyps with all of her diverticula having been removed at the time of her Elaine's procedure. The patient has done an appropriate preoperative bowel prep and as such, indication was for the above-mentioned procedures today with intraoperative findings of dense intra-abdominal adhesions ongoing that required a lengthy lysis of adhesions as well as mobilization of splenic flexure to attain a tension-free coloproctostomy. DESCRIPTION OF PROCEDURE: After explaining the risks, benefits and alternatives of the procedure with the patient in detail in the preoperative holding area and obtaining written consent, the patient was brought to the operating room and placed supine on the operating room table. After conducting a thorough timeout procedure verifying correct patient and procedure, the patient was given general endotracheal anesthesia. Once adequate anesthesia was attained, her SCDs were hooked up to pneumatic compression device. She was given a preoperative dose of antibiotics in line with the SCIP protocol. The colostomy was sewn shut using 2-0 silk in a pursestring fashion. The patient's abdomen was now prepped and draped in a standard surgical sterile fashion after positioning her in the low lithotomy position with her legs in the Yellofin stirrups. A 5 mL of 0.5% Marcaine with epinephrine were used to anesthetize the skin 5 cm cephalad to the umbilicus and 5 cm to the patient's right. A #15 bladed scalpel was used to create a small skin bianka at this location. A 5 mm Visiport was placed over 0 degree 5 mm laparoscope and was introduced through this incision site. Once intra-abdominal placement was verified visually, the obturator for the trocar and laparoscope were both removed and the abdomen was insufflated to 15 mmHg using carbon dioxide gas. The laparoscope was changed to a 5-mm 30-degree laparoscope, which was reintroduced through this trocar. The entire abdomen was evaluated to ensure no injury upon entry. We immediately identified dense and significant intra-abdominal adhesions widespread throughout the intra-abdominal domain. I was able to place a 5 mm port in the right lower quadrant under direct vision as there was a paucity of adhesions at this location. This was placed under direct vision as well after anesthetizing the skin at that location with 5 mL of 0.5% Marcaine with epinephrine and I had created a small skin bianka using #15 bladed scalpel. I [address] [address] OPERATIVE REPORT Name: LON OCONNOR Room #: 431-P [facility] IN [place]#: [id number] Admission: 11/04/17 Attend Phys: Juanita Huynh MD, Discharge: Date of : 54 Report #: [id number] now used EndoShears to take down some adhesions in the upper midline to where I was able to place an additional 5 mm port 5 cm cephalad to the umbilicus through her longitudinal midline incision under direct vision after anesthetizing the skin at that location with 5 mL of 0.5% Marcaine with epinephrine and I had created a small skin bianka there as well. I now proceeded to carry out the extensive lysis of adhesions again using a combination of EndoShears and the articulating EnSeal device to take all these down, staying well away from bowel at all times. Ultimately, once I completed the lysis of adhesions, which encompassed taking down adhesions in the upper abdomen as well, we found her to have evidence of an incarcerated band of omentum contained within an incisional hernia at the most cephalad aspect of her longitudinal midline incision as well as marked omentum incarcerated within a parastomal hernia around her left lower quadrant ostomy. Once we had taken these adhesions down and reduced all of this back into the abdomen, I proceeded to place a #1 PDS suture into the abdomen down one of the trocars and intracorporeally placed a [id number] suture around the incisional hernia defect in the upper abdomen. This was tied down intracorporeally as well, completely repairing the defect as a separate procedure. The needle was removed and passed off the field. At this juncture, we now placed the patient in steep Trendelenburg position with the left side elevated and took down more adhesions in the pelvis of small bowel tethered to the sacral promontory. Once I had taken all of these down, I was able to sweep the small bowel into the upper abdomen and the end of the stapled off rectal stump appeared to be intimately plastered to the right fallopian tube and ovary. This was gently without causing injury to the rectal stump whatsoever and ultimately I was able to straighten out the rectal stump for further evaluation. The rectal stump itself appeared healthy and uninjured. We now proceeded to size the rectal stump with EEA sizers and showed that this was quite diminutive and the largest size amenable was to be a 25 EEA. We therefore selected a 25 EEA stapler and turned our attention to the colostomy site. I proceeded to create an elliptical incision transversely oriented around the colostomy site with a #15 bladed scalpel and dissected down with the electrocautery to ensure hemostasis. Once I arrived upon the fascia, I was able to score along the superior aspect as that is where the parastomal hernia was evident and I was able to create a defect in the hernia sac and placed a finger into the abdomen. I then proceeded to circumferentially excise the bowel off its fascial attachments with the hernia sac excised in concert with the end of the colostomy. An appropriate site was selected that was healthy and the auto pursestring suture device was deployed at this location. Curved Simons scissors were used to resect the colostomy and passed off the field as specimen. The auto pursestring suture device was removed and the 25 EEA anvil was placed into the open end of colon. The pursestring suture was tied down around the post of the anvil and this did not necessitate any further cleaning off the end of the colon. This was then placed back into the abdomen and penetrating towel clips were used to regain pneumoperitoneum. The rectal stump was sized once again with a 25 EEA sizer and then a 25 EEA stapler was placed down the rectal stump. [facility] [address] [place] [address] OPERATIVE REPORT Name: LON OCONNOR Room #: 431-[facility] IN [place]#: [id number] Admission: 11/04/17 Attend Phys: Juanita Huynh MD, Discharge: Date of : 54 Report #: [id number] At this juncture, it appeared that we needed to mobilize the splenic flexure to allow for a tension-free anastomosis. I proceeded to mobilize along the white line of Toldt after placing the patient in reverse Trendelenburg position. This was done using the articulating EnSeal device, staying well away from the colonic wall. Once I had taken this dissection up and over the splenic flexure, I was able to get the colon to drop down approximately 7-8 cm additional and now we had easy overlap of our anvil and our spike from the stapler of about 3-4 cm to certainly allow for a tension-free anastomosis. The patient was placed back in Trendelenburg position and I was able to mate the anvil to the spike of the stapler. The stapler was ratcheted down ensuring no twisting to the bowel whatsoever. Once we were satisfied, the stapler was fired and removed. This showed a tension-free coloproctostomy that appeared intact. We had two beefy donuts from the anastomosis that were complete. The bowel was clamped in the descending colon and normal saline was instilled into the pelvis. The rigid proctoscope was used to insufflate the rectum across the anastomosis and we had no evidence of bubbling on 3 occasions with excellent tidaling of the fluid within the abdomen. A rigid proctoscope was removed and passed off the field from below. The saline was suctioned out of the abdomen and it ran clear. One final evaluation of the intra-abdominal domain showed no further evidence of pathology at this juncture. We were very satisfied with the anastomosis that was tension-free. We now closed the parastomal hernia site from the colostomy using #1 PDS in standard running fashion. This was tied down completely repairing it and the abdomen was gently reinsufflated to 5 mmHg to ensure we did not catch a loop of bowel or omentum in the suture repair, which we did not. The abdomen was fully desufflated. All remaining trocars were removed under direct vision. At the end of the procedure, all instrument, needle and sponge counts were correct. The patient tolerated the lengthy procedure without incident where she was awakened in the operating room and transitioned to the recovery room in stable condition with no apparent complications. <ELECTRONICALLY SIGNED> By: Juanita Huynh MD, FACS 11/05/17 1701 [id number] [id number] Juanita Huynh MD, FACS /nt
--- NOTE | ~2017-11-04 | HC ---
[facility] [place] [address] CONSULTATION Name: LON OCONNOR Room #: 227-P [facility] IN M.R.#: [id number] Admission: 11/04/17 Attend Phys: Juanita Huynh MD, Discharge: Date of : 54 Report #: [id number] THIS REPORT FOR: //name// CC: Juanita Huynh Azalea Connor DATE OF SERVICE: 11/06/2017 REASON FOR CONSULTATION: Medical management. SUBJECTIVE: She is doing well postoperatively. She is now postop day #2, tolerating clear liquids without nausea, was bloated quite a bit yesterday, but that has greatly improved. She is passing lots of flatus. No bowel movement. Denies fever. Abdominal pain controlled with oral medications. OBJECTIVE: VITAL SIGNS: Afebrile, blood pressure 123/75. NECK: Supple. CHEST: Clear. HEART: Regular. ABDOMEN: Soft, mildly tender. Bowel sounds present, nondistended. LABORATORY DATA: Creatinine decreased to 1.0, hemoglobin 11.5. ASSESSMENT AND PLAN: Postop day #2, status post colostomy takedown, tolerating clear liquids well. The patient reports would like to go home. We will await Surgery recommendations, anticipating advancing diet today with discharge either later today or tomorrow. <ELECTRONICALLY SIGNED> By: Saroj Veliz MD 11/07/17 0657 [id number] Saroj Veliz MD /viktoriya
[~2017-11-04 05:44] MED LIST changes: +ASPIR 8181 MG PO; +BIOTIN PO; +DIAZEPAM 2MG TAB2 MG PO; +DILAUDID 2 MG TA2 MG PO; +DULCOLAX STOOL100 M1 PO; +FISH OIL 1,2001 EACH PO; +HYDROCHLOROTHIA25 M2 PO; +LEXAPRO20 MG PO; +MULTI VITAMIN1 EACH PO; +OMEPRAZOLE20 M1 PO; +OMEPRAZOLE40 MG PO; +VITAMIN B12 PO
[2017-11-04 08:56] LABS: HEMATOCRIT 41.9 % (37.0-47.0); HEMOGLOBIN 14.1 gm/dL (12.0-15.0); MCH 31.9 pg (26.0-34.0); MCHC 33.6 g/dL (28.0-37.0); MCV 94.8 fL (80.0-100.0); RBC 4.42 mil/uL (4.20-5.00); RDW 13.6 % (10.5-14.5); WBC 5.1 thou/uL (4.0-11.0)
[2017-11-04 09:00] VITALS: BP 125/75
[2017-11-04 09:02] LABS: CREATININE 1.2 mg/dL (0.6-1.0); POTASSIUM 3.7 mmol/L (3.5-5.1)
[2017-11-04 17:00] VITALS: BP 102/55
[2017-11-04 17:10] VITALS: BP 102/55
[2017-11-04 20:00] VITALS: BP 101/55
[2017-11-05 00:44] VITALS: BP 98/53
[2017-11-05 04:15] VITALS: BP 93/56
[2017-11-05 04:37] VITALS: BP 93/56
[2017-11-05 05:08] LABS: HEMATOCRIT 34.5 % (37.0-47.0); MCH 32.6 pg (26.0-34.0); MCHC 33.6 g/dL (28.0-37.0); RBC 3.55 mil/uL (4.20-5.00); RDW 13.8 % (10.5-14.5); WBC 8.3 thou/uL (4.0-11.0)
[2017-11-05 05:11] LABS: CALCIUM 8.3 mg/dL (8.5-10.1); CREATININE 1.6 mg/dL (0.6-1.0); POTASSIUM 4.4 mmol/L (3.5-5.1)
[2017-11-05 05:37] LABS: HEMOGLOBIN 11.6 gm/dL (12.0-15.0)
[2017-11-05 08:40] VITALS: BP 102/46
[2017-11-05 15:46] VITALS: BP 91/49
[2017-11-05 21:07] VITALS: BP 123/65
[2017-11-06 07:03] LABS: ABSOLUTE NEUTROPHILS 3.9 thou/uL (1.4-8.2); BASOPHILS 1.1 % (0.0-2.0); EOSINOPHILS 1.8 % (0.0-3.0); HEMATOCRIT 33.9 % (37.0-47.0); HEMOGLOBIN 11.5 gm/dL (12.0-15.0); LYMPHOCYTES 28.7 % (24.0-44.0); MCH 32.5 pg (26.0-34.0); MCHC 33.8 g/dL (28.0-37.0); MCV 96.2 fL (80.0-100.0); MONOCYTES 9.6 % (1.0-8.0); PLATELET COUNT 261 thou/uL (150-400); POLYS 58.8 % (36.0-66.0); RBC 3.53 mil/uL (4.20-5.00); RDW 13.7 % (10.5-14.5); WBC 6.7 thou/uL (4.0-11.0)
[2017-11-06 07:11] LABS: CALCIUM 8.3 mg/dL (8.5-10.1); POTASSIUM 4.2 mmol/L (3.5-5.1)
[2017-11-06 08:52] VITALS: BP 134/71
[2017-11-06 20:18] VITALS: BP 113/62
[2017-11-07 04:33] LABS: ABSOLUTE NEUTROPHILS 3.9 thou/uL (1.4-8.2); BASOPHILS 0.9 % (0.0-2.0); EOSINOPHILS 1.9 % (0.0-3.0); HEMATOCRIT 34.8 % (37.0-47.0); LYMPHOCYTES 25.5 % (24.0-44.0); MCH 32.9 pg (26.0-34.0); MCHC 34.5 g/dL (28.0-37.0); MCV 95.3 fL (80.0-100.0); MONOCYTES 9.7 % (1.0-8.0); PLATELET COUNT 282 thou/uL (150-400); RBC 3.66 mil/uL (4.20-5.00); RDW 13.6 % (10.5-14.5); WBC 6.3 thou/uL (4.0-11.0)
[2017-11-07 04:58] LABS: CALCIUM 8.9 mg/dL (8.5-10.1); CREATININE 1.1 mg/dL (0.6-1.0); POTASSIUM 4.2 mmol/L (3.5-5.1)
[2017-11-07 08:14] VITALS: BP 122/77
[2017-11-07] MEDS ORDERED: COLACE 100 MG100 MG PO (10:17)
[2017-11-07] MEDS ORDERED: LEVAQUIN 750 M750 MG PO (10:17)
[2017-11-07] MEDS ORDERED: DILAUDID 2 MG TA2 MG PO (10:17)
== END 2017-11-07 13:13 | disposition home or self-care (01) | DRG 336 ==
LOC: 4E 05:44 → TBA 05:44 → PRE 10:24 → 4E 15:13 → SICU 11-05 17:46
PROVIDERS: Surgery
PROC: 0WQF4ZZ Repair Abdominal Wall, Percutaneous Endoscopic Approach (ICD-10-PCS; principal; 2017-11-04)
PROC: 0DSM4ZZ Reposition Descending Colon, Percutaneous Endoscopic Approach (ICD-10-PCS; principal; 2017-11-04)
PROC: 0DNW4ZZ Release Peritoneum, Percutaneous Endoscopic Approach (ICD-10-PCS; principal; 2017-11-04)
DX: Z43.3 Encounter for attention to colostomy (principal); K43.3 Parastomal hernia with obstruction, without gangrene; K43.0 Incisional hernia with obstruction, without gangrene; K66.0 Peritoneal adhesions (postprocedural) (postinfection); F32.9 Major depressive disorder, single episode, unspecified; F41.9 Anxiety disorder, unspecified; Z88.6 Allergy status to analgesic agent; Z88.1 Allergy status to other antibiotic agents; Z88.2 Allergy status to sulfonamides; Z79.82 Long term (current) use of aspirin; Z79.899 Other long term (current) drug therapy; Z82.49 Family history of ischemic heart disease and other diseases of the circulatory system; Z81.8 Family history of other mental and behavioral disorders; Z87.891 Personal history of nicotine dependence; Z83.3 Family history of diabetes mellitus; Z82.3 Family history of stroke; N18.3 Chronic kidney disease, stage 3 (moderate); I12.9 Hypertensive chronic kidney disease with stage 1 through stage 4 chronic kidney disease, or unspecified chronic kidney disease
CPT/HCPCS: 10783; 15002; 50010; 50093; 50101; 50249; 50555; 50558; 50804; 51398; 51489; 52265; 53307; 54022; 54118; 56462; 56525; 56526; 56527; 56753; 57091; 57092; 62110; 62900; 70005

== ENCOUNTER → 2018-08-29 | Outpatient (CLI) | payer OTHER, BC ==
[~2018-08-29] MED LIST changes: +COLACE 100 MG100 MG PO; +LEVAQUIN 750 M750 MG PO
== END ==
LOC: BC 12:08
DX: Z12.31 Encounter for screening mammogram for malignant neoplasm of breast (principal)